=== PATIENT | female | born 1945 | race Caucasian/White ===

== ENCOUNTER → 2023-12-23 09:04 | Outpatient (REF) | payer OTHER, SELFPAY ==
[2023-12-23 11:15] LABS: % Basophils 1.7 % (0-2); % Eosinophils 1.5 % (0-6); % Immature Granulocytes 0.1 % (0-0.5); % Monocytes 7.2 % (1.7-9.3); % Neutrophils 56.5 % (42.2-75.2); Absolute Basophils 0.1 10^3/uL (0-0.2); Absolute Eosinophils 0.1 10^3/uL (0-0.7); Absolute Lymphocytes 2.5 10^3/uL (1.2-3.4); Absolute Monocytes 0.5 10^3/uL (0.1-0.6); Absolute Neutrophils 4.3 10^3/uL (1.4-6.5); Hematocrit 36.9 % (37.0-47.0); Mean Corp Hgb Conc. 32.5 g/dL (33.0-37.0); Mean Corpuscular Volume 98.4 fL (81.0-99.0); Mean Platelet Volume 10.4 fL (7.4-10.4); Nucleated Red Blood Cells % 0 %; Platelet Count 330 10^3/uL (130-400); Red Blood Cell Count 3.75 10^6/uL (4.20-5.40); Red Cell Dist. Width 12.3 % (11.5-14.5); White Blood Cell Count 7.6 10^3/uL (4.8-10.8)
[2023-12-23 11:28] LABS: ALT (SGPT) 12 U/L (0-35); AST (SGOT) 30 U/L (14-36); Albumin 4.3 g/dl (3.5-5.0); Alkaline Phosphatase 73 U/L (38-126); Blood Urea Nitrogen 29 mg/dl (7-17); Calcium 9.4 mg/dl (8.4-10.2); Chloride 102 mmol/L (98-107); Glucose 85 mg/dl (70-99); HDL Cholesterol 106 mg/dl; LDL Cholesterol, Calculated 62 mg/dl; Potassium 4.4 mmol/L (3.5-5.1); Sodium 138 mmol/L (135-145); Total Bilirubin 0.7 mg/dl (0.2-1.3); Total Cholesterol 184 mg/dl (50-199); Total Protein 7.4 g/dl (6.3-8.2); Triglyceride 80 mg/dl (10-149); Very Low Density Lipoprotein 16 mg/dl (0-30); eGFR 41.57
[2023-12-23 11:38] LABS: Carbon Dioxide 25 mmol/L (22-30)
[2023-12-23 11:45] LABS: Free T4 2.03 ng/dl (0.78-2.19)
[2023-12-23 11:54] LABS: Glycohemoglobin (HgbA1c) 5.2 % (4.0-5.6)
[2023-12-23 11:59] LABS: TSH 2.16 uIU/ml (0.47-4.68)
== END ==
LOC: HWLAB 09:04
PROVIDERS: ATTENDING PHYSICIAN Internal Medicine
DX: E78.1 Pure hyperglyceridemia (principal); R63.4 Abnormal weight loss; E03.9 Hypothyroidism, unspecified; D64.9 Anemia, unspecified; R06.89 Other abnormalities of breathing; Z87.891 Personal history of nicotine dependence
CPT/HCPCS: 36415; 71046; 80053; 80061; 83036; 84439; 84443; 84481; 85025

== ENCOUNTER → 2024-07-28 07:56 | Outpatient (REF) | payer OTHER, SELFPAY ==
[2024-07-28 09:38] LABS: % Basophils 1.9 % (0-2); % Eosinophils 1.4 % (0-6); % Immature Granulocytes 0.2 % (0-0.5); % Lymphocytes 27.5 % (20.5-51.1); % Monocytes 8.4 % (1.7-9.3); % Neutrophils 60.6 % (42.2-75.2); Absolute Basophils 0.1 10^3/uL (0-0.2); Absolute Eosinophils 0.1 10^3/uL (0-0.7); Absolute Lymphocytes 1.6 10^3/uL (1.2-3.4); Absolute Monocytes 0.5 10^3/uL (0.1-0.6); Absolute Neutrophils 3.5 10^3/uL (1.4-6.5); Hematocrit 36.2 % (37.0-47.0); Hemoglobin 11.6 g/dL (12.0-16.0); Mean Corpuscular Hgb 32.1 pg (27.0-31.0); Mean Corpuscular Volume 100.3 fL (81.0-99.0); Mean Platelet Volume 9.7 fL (7.4-10.4); Nucleated Red Blood Cells % 0 %; Platelet Count 287 10^3/uL (130-400); Red Blood Cell Count 3.61 10^6/uL (4.20-5.40); Red Cell Dist. Width 12.8 % (11.5-14.5); White Blood Cell Count 5.7 10^3/uL (4.8-10.8)
[2024-07-28 09:49] LABS: ALT (SGPT) 11 U/L (0-35); AST (SGOT) 27 U/L (14-36); Albumin 4.2 g/dl (3.5-5.0); Alkaline Phosphatase 57 U/L (38-126); Blood Urea Nitrogen 22 mg/dl (7-17); Calcium 9.5 mg/dl (8.4-10.2); Carbon Dioxide 25 mmol/L (22-30); Chloride 98 mmol/L (98-107); Glucose 89 mg/dl (70-99); HDL Cholesterol 102 mg/dl; LDL Cholesterol, Calculated 53 mg/dl; Potassium 4.4 mmol/L (3.5-5.1); Sodium 134 mmol/L (135-145); Total Bilirubin 0.8 mg/dl (0.2-1.3); Total Cholesterol 179 mg/dl (50-199); Total Protein 6.9 g/dl (6.3-8.2); Triglyceride 123 mg/dl (10-149); Very Low Density Lipoprotein 24 mg/dl (0-30); eGFR 45.76
[2024-07-28 10:08] LABS: Free T3 2.66 pg/ml (2.77-5.27); Free T4 2.14 ng/dl (0.78-2.19)
[2024-07-28 10:21] LABS: TSH 2.44 uIU/ml (0.47-4.68)
[2024-07-28 10:41] LABS: Vitamin B12 687 pg/ml (239-931)
[2024-07-28 11:06] LABS: Glycohemoglobin (HgbA1c) 5.1 % (4.0-5.6)
== END ==
LOC: HWLAB 07:56
PROVIDERS: ATTENDING PHYSICIAN Internal Medicine
DX: R63.4 Abnormal weight loss (principal); I10 Essential (primary) hypertension; E78.1 Pure hyperglyceridemia; E03.9 Hypothyroidism, unspecified; D64.9 Anemia, unspecified; E53.8 Deficiency of other specified B group vitamins
CPT/HCPCS: 36415; 80053; 80061; 82607; 83036; 84439; 84443; 84481; 85025

== ENCOUNTER → 2024-08-24 10:14 | Outpatient (REF) | payer OTHER, SELFPAY | LOC: HWRAD 10:14 | PROVIDERS: ATTENDING PHYSICIAN Internal Medicine | DX: R63.4 Abnormal weight loss (principal); Z87.891 Personal history of nicotine dependence | CPT/HCPCS: 71250 ==

== ENCOUNTER → 2025-02-08 11:11 | Outpatient (REF) | payer OTHER, SELFPAY ==
[2025-02-08 15:40] LABS: Hematocrit 23.2 % (37.0-47.0); Hemoglobin 7.5 g/dL (12.0-16.0); Mean Corp Hgb Conc. 32.3 g/dL (33.0-37.0); Mean Corpuscular Volume 97.9 fL (81.0-99.0); Nucleated Red Blood Cells % 0 %; Platelet Count 422 10^3/uL (130-400); Red Cell Dist. Width 13.4 % (11.5-14.5); Reticulocyte Count 4.6 % (0.4-2.8)
[2025-02-08 15:50] LABS: ALT (SGPT) < 10 U/L (0-35); AST (SGOT) 21 U/L (14-36); Albumin 3.7 g/dl (3.5-5.0); Alkaline Phosphatase 41 U/L (38-126); Blood Urea Nitrogen 65 mg/dl (7-17); Calcium 8.6 mg/dl (8.4-10.2); Carbon Dioxide 24 mmol/L (22-30); Chloride 105 mmol/L (98-107); Glucose 90 mg/dl (70-99); HDL Cholesterol 46 mg/dl; Iron 54 ug/dl (37-170); LDL Cholesterol, Calculated 58 mg/dl; Potassium 4.5 mmol/L (3.5-5.1); Sodium 133 mmol/L (135-145); Total Protein 6.1 g/dl (6.3-8.2); Very Low Density Lipoprotein 26 mg/dl (0-30); eGFR 26.20
[2025-02-08 15:59] LABS: Total Iron Binding Capacity 385 ug/dl (265-497)
[2025-02-08 16:23] LABS: Ferritin 182.0 ng/ml (11.1-264.0)
[2025-02-09 10:49] LABS: Glycohemoglobin (HgbA1c) 5.5 % (4.0-5.6)
== END ==
LOC: HWLAB 11:11
PROVIDERS: ATTENDING PHYSICIAN Internal Medicine
DX: D64.9 Anemia, unspecified (principal); E78.1 Pure hyperglyceridemia; R63.4 Abnormal weight loss; K21.9 Gastro-esophageal reflux disease without esophagitis
CPT/HCPCS: 36415; 80053; 80061; 82728; 83036; 83540; 83550; 85025; 85045

== ENCOUNTER 2025-02-12 01:23 | Inpatient (IN) | payer OTHER, SELFPAY ==
[2025-02-11 16:37] VITALS: BP 177/44
[2025-02-11 17:09] LABS: Hematocrit 23.6 % (37.0-47.0); Hemoglobin 7.7 g/dL (12.0-16.0); Mean Corp Hgb Conc. 32.6 g/dL (33.0-37.0); Mean Corpuscular Volume 97.5 fL (81.0-99.0); Nucleated Red Blood Cells % 0 %; Platelet Count 436 10^3/uL (130-400); Red Cell Dist. Width 14.1 % (11.5-14.5)
[2025-02-11 17:27] LABS: ALT (SGPT) < 10 U/L (0-35); AST (SGOT) 20 U/L (14-36); Albumin 3.9 g/dl (3.5-5.0); Alkaline Phosphatase 54 U/L (38-126); Blood Urea Nitrogen 73 mg/dl (7-17); Calcium 9.2 mg/dl (8.4-10.2); Glucose 84 mg/dl (70-99); Lipase 376 U/L (23-300); Total Protein 6.7 g/dl (6.3-8.2); eGFR 26.20
[2025-02-11 17:36] LABS: Troponin I < 0.012 ng/ml
[2025-02-11 17:38] LABS: Carbon Dioxide 24 mmol/L (22-30); Chloride 107 mmol/L (98-107); Potassium 6.0 mmol/L (3.5-5.1); Sodium 136 mmol/L (135-145)
[2025-02-11 19:50] VITALS: BMI 20.5
[2025-02-11 19:51] VITALS: BP 190/41
[2025-02-11 20:00] VITALS: BP 179/41
--- NOTE | 2025-02-11 20:15 | ED.GENMED ---
History of Present Illness
General
Chief Complaint: Abnormal Lab Value
Source: patient and family (Daughter)
Time Seen by Provider: 02/11/25 19:58
History of Present Illness
History of Present Illness:
79-year-old female sent to the emergency room at the recommendation of her primary care provider for evaluation of epigastric pain and lab abnormalities. The patient has been experiencing epigastric pain for the past couple weeks. She also has had
increase in her cough. The epigastric pain seems to come and go without any clear association to eating or activity. No nausea vomiting diarrhea or constipation. She denies any black or bloody stool. She has taken Tums without relief. Her
primary care doctor prescribed a proton pump inhibitor which she has been taking for couple days and has not seemed to help. She is having the pain now. Her primary care provider ordered some labs and she was found to have a hemoglobin of 7.5 and
renal function which is elevated above her baseline. Patient has been able to perform her activities of daily living without significant shortness of breath or fatigue. Patient is a former smoker having quit about 6 months ago. She smoked about a
half a pack a day for 60 years.
Past History
Past History
ED Past Medical History: Hypercholesterolemia
Social History
Tobacco: Former smoker
Personal:
Phy Exam
Physical Exam
Physical Exam:
General: Awake, Alert, Oriented X3. Appears stated age, somewhat thin
Vitals: Mildly hypertensive
Head: Atraumatic
Eyes: Pupils equal, EOMI
Throat: Airway intact, no exudates
Neck: Trachea midline
Lungs: Clear and equal b/l
Heart: Regular rate, no murmurs
Abd: Soft, moderate tenderness palpation epigastrium, No pulsatile mass
Rectal: Brown stool heme-negative
Neuro: Nonfocal
Skin: Warm, dry, no rash
Extremities: pulses equal b/l, no edema
Course
Orders/Labs/Results
Orders:
Orders
02/11/25 16:43
EKG [Electrocardiogram (*1)] Urgent
Reason for Study: Abdominal Pain
02/11/25 16:44
EKG- Treatment ONCE
02/11/25 17:02
Complete Blood Count/With Diff Urgent
Comprehensive Metabolic Panel Urgent
Lipase Urgent
Troponin I Urgent
02/11/25 20:12
0.9% Sodium Chloride 500 ml [Nss] 500 ml IV BOLUS
Iohexol [Omnipaque] See Protocol PO NOW STA
02/11/25 20:13
CT Abd/pel (oral only)-DH Only Urgent
Comment:
Reason For Exam: epigastric pain, anemia, arf
02/11/25 20:14
Pantoprazole [Protonix IV] 80 mg IV NOW STA
02/12/25 01:06
Admit/Transfer Patient As Directed
Co-Sign Provider:
Level of Care: Inpatient admission
Assign to:: Telemetry
Physician / Group: Jesus
Diagnosis: abdominal pain
Reason for Telemetry: Other
Other Reason for Telemetry: GI bleed
Date to Stop Telemetry: 02/14/25
Time to Stop Telemetry: 11:00
Reason for Hospitalization: gastritis
Expected length of stay greater than two midnights?: Yes
ELOS- Estimated Length of Stay in days: 2
I certify the patient meets the requirements for IP care: Yes
PRN Pain Medication Management As Directed
May give lesser potent ordered pain med per pt: Yes
preference::
Protocol:: Medication orders for pain may be administered in a
manner that supports deferring to patient preference
when the pt is:
- Requesting an ordered lesser potent pain medication.
Least to most potent pain medications are defined
as: acetaminophen < NSAID < tramadol < opioids
(morphine, oxycodone, hydromorphone).
- Requesting a lesser dose of the same medication IF
ORDERED.
- Requesting a less intrusive route of administration
if both routes are prescribed by the provider (PO <
IV).
02/12/25 01:07
Code Status As Directed
Resuscitation Status: Full Code
02/12/25 01:12
0.9% Sodium Chloride 250 ml [Nss] 250 ml IV BOLUS
Sodium Zirconium Cyclosilicate [Lokelma] 10 gram PO NOW STA
02/12/25 01:19
Code Status As Directed
Resuscitation Status: Do not resuscitate
Reached after discussion with pt or family/Healthcare POA: Yes
02/12/25 02:57
0.9% Sodium Chloride 1000 ml [Nss] 1,000 ml IV 100 mls/hr
Prochlorperazine [Compazine] 10 mg IV Q6HPRN PRN
02/12/25 02:57
Consult Notification Routine
Specialty to Notify: Gastroenterology
GASTROINTESTINAL CONSULT Routine
Consulting Provider: Mike Mathew
Was physician already notified: No
Reason for consult: acute gastritis, ?subacute gi bleed
Activity As Directed
Activity Level: With Assistance
INT (Intravenous Needle Therapy) As Directed
Comment: Place 2 IV catheters of the largest bore possible until stable
Orthostatic Vital Signs As Directed
Orthostatic VS Frequency: Now
Comment: then every four hours for twenty-four hours
Pneumatic Compression Sleeves As Directed
Type: Knee high
Vital Signs As Directed
Frequency: Per unit guidelines
DX Deep Vein Thrombosis Video Routine
02/12/25 06:00
Type+Screen IN AM
Clear Liquid
Basic Metabolic Panel IN AM
Complete Blood Count/No Diff IN AM
Prothrombin Time IN AM
Levothyroxine [Synthroid] 112 mcg PO DAILY @ 0600
02/12/25 08:00
Amlodipine [Norvasc] 5 mg PO DAILY
Escitalopram Oxalate [Lexapro] 20 mg PO DAILY
Pantoprazole [Protonix IV] 40 mg IV BID
02/12/25 14:00
H&H Q8H
02/12/25 22:00
Trazodone [Desyrel] 50 mg PO HS
02/14/25 11:00
DC Protocol for Telemetry ONCE
Abnormal Lab Results
02/11/25
17:02
RBC 2.42 L 10^6/uL
(4.20-5.40)
Hgb 7.7 L g/dL
(12.0-16.0)
Hct 23.6 L %
(37.0-47.0)
MCH 31.8 H pg
(27.0-31.0)
MCHC 32.6 L g/dL
(33.0-37.0)
Plt Count 436 H 10^3/uL
(130-400)
Absolute Monos (auto) 0.7 H 10^3/uL
(0.1-0.6)
Monocytes % 9.6 H %
(1.7-9.3)
Potassium 6.0 H mmol/L
(3.5-5.1)
BUN 73 H mg/dl
(7-17)
Creatinine 1.9 H mg/dL
(0.6-1.0)
Lipase 376 H U/L
(23-300)
02/11/25 17:02
02/11/25 17:02
Vital Signs
Initial and Last Documented VS:
Initial Vital Signs
Temp Pulse Resp BP Pulse Ox
97.4 F 66 18 177/44 100
02/11/25 16:37 02/11/25 16:37 02/11/25 16:37 02/11/25 16:37 02/11/25 16:37
Last Documented Vital Signs
Temp Pulse Resp BP Pulse Ox
97.4 F 63 15 171/44 97
02/11/25 16:37 02/12/25 02:30 02/12/25 02:30 02/12/25 02:00 02/12/25 02:30
MDM/Problems Addressed
Differential Diagnosis Includes:
Gastritis, peptic ulcer disease, duodenal ulcer, mass, cholecystitis
MDM/Problems Addressed:
Patient presents with epigastric abdominal pain, drop in hemoglobin. BUN also elevated. Constellation of symptoms could suggest an upper GI bleed. Also concerned that she might have some pancreatic cancer or some other mass lesion causing her
significant epigastric pain. CT obtained. No mass noted. Gallstones noted without evidence of cholecystitis. CT does show evidence of gastritis and duodenitis. Will treat the patient with IV Protonix. Hospitalize for trending of labs.
*Radiology
Radiology exam reviewed: radiology read reviewed
*Pulse Oximetry
SaO2: 100
Oxygen Mode of Delivery: Room air
Patient hypoxic: no
*EKG
Interpreted by ED Provider?: Yes
Interpretation: abnormal
Comparison EKG: changes noted (First-degree block now present)
Heart Rate: 68
Rate: normal
Rhythm: sinus
[place]: normal axis
Interval: first degree heart block
QRS Pattern: normal QRS
Ischemia: non-specific ST changes
*Hard Tile Setter Interpretation
Rate: normal
Interpretation: normal
Rhythm: sinus
*Critical Care Note
Total Time (30-74mins, 75-104mins- exclusive of procedures): Not Applicable
ED Attending Note
-
Portions of this chart may have been created with voice recognition software.� Occasional wrong word or��sound alike� substitutions may have occurred due to the inherent limitations of voice recognition software.
Discharge Plan
Departure
Patient Disposition: Admit
Date of Disposition: 02/11/25
Time of Disposition: 23:48
Admit to: Med/Surg
Presentation/result/management discussed w/ accepting MD/DO: Hospitalist
Condition: Fair
Discharge Problem:
Acute upper GI bleed, Gastritis
Interventions
Interventions:
*Risk Screen - Suicide Last Done: 02/11/25 16:37
*General Assessment Last Done: 02/11/25 16:37
*Neglect/Abuse Screening Last Done: 02/11/25 21:12
*ED- Fall Risk Assessment Last Done: 02/11/25 19:51
*ED COVID-19 Vaccine History Last Done: 02/11/25 16:37
*Nursing Disposition Last Done: 02/12/25 02:52
Discharge Date and Time
Discharge Date/Time: 02/12/25 02:52
[2025-02-11] MEDS: OMNIPAQUE 50 ML PO (20:37)
[2025-02-11] MEDS: PROTONIX IV 80 MG IV (20:40)
[2025-02-11] MEDS: NSS 500 IV (20:40)
[2025-02-11 21:00] VITALS: BP 173/43
[2025-02-11 22:00] VITALS: BP 167/43
[2025-02-12] VITALS (10 sets, daily range): BP systolic 131–189; BP diastolic 38–66; PULSE 66–83; BMI 19.8
--- NOTE | 2025-02-12 00:57 | HPS.HSE ---
Family Physician
-
Family Physician: Vane Tate
Chief Complaint
-
Low hemoglobin
History of Present Illness
This is a 79-year-old female with past medical history significant for hypothyroidism, hypertension, hyperlipidemia, presenting to the emergency department on recommendation of PMD for evaluation of epigastric discomfort and abnormal labs.
She reports ongoing experience of epigastric discomfort for at least 2 weeks. She reports intermittent episodes without any clear associated symptoms or activity. She denies exacerbation with eating. She denies any nausea or vomiting. She denies
constipation. She denies having any diarrhea. He has denies seeing any melena or hematochezia. She denies feeling dizzy or lightheaded. She denies dyspnea on exertion or shortness of breath or fatigue. She has not had any episodes of syncope.
Patient is a former smoker quitting about 6 months ago. She took Tums without relief. Denies NSAID use. Denies EtOH. She was started on PPI by PMD and is taking for about 2 days now without much help. Unfortunately PMD some labs recently and
found to have a hemoglobin of 7.5 with elevated creatinine above baseline.
In the emergency department hemoglobin 7.7 with normal platelet counts. Potassium was elevated at 6.0, BUN of 73 and a creatinine of 1.9. LFTs were normal and lipase was elevated at 376. CT of the abdomen pelvis without IV contrast was
consistent with emphysema, atelectasis as well as thickening around the stomach and the wall of the duodenum which is suggestive of gastritis and duodenitis. There is cholelithiasis without acute cholecystitis or choledocholithiasis. ECG is
nonischemic and sinus with 4 degree AV block at 68.
Medical History
Past Medical History
Past Medical History: Reports HTN, Hypercholesterolemia and Hypothyroidism
Past Surgical History: Reports Other
Social History
Tobacco: Former Smoker
Alcohol: None
Drug: None
Family History
Family History: Not pertinent
Allergies / Home Medications
Allergies reflects when Allergies were last updated in [employer].
Home Medications with original date entered in [employer]
Allergy/Medication List:
Allergies
Allergy/AdvReac Type Severity Reaction Status Date / Time
No Known Allergies Allergy Verified 02/11/25 16:42
Home Medications
Irbesartan 300 MG TAKE 1 TABLET EVERY DAY for 90 Active
Other [employer] Active
Levothyroxine Sodium 112 MCG TAKE 1 TABLET EVERY MORNING ON AN EMPTY STOMACH for 90 Active
Pantoprazole Sodium 40 MG TAKE 1 TABLET EVERY DAY for 90 days Jan, Active
Advil prn Active
Vitamin B12 500 mg Active
traZODone HCl 50 MG 1-2 tablets at bedtime as needed Orally Once a day for 30 days Active
amLODIPine Besylate 5 MG 1 tablet Orally Once a day for 90 days Active
Megestrol Acetate 625 MG/5ML 5 mL Orally Once a day for 30 days Jan, Feb, Active
Fenofibrate 160 MG 1 tablet Orally Once a day for 90 days Oct, Active
Escitalopram Oxalate 20 MG 1 tablet Orally Once a day for 90 days Jan, Active
Pantoprazole Sodium 40 MG 1 tablet 1/2 to 1 hour before morning meal Orally Once a day for 30 days Jan, Active
Review of Systems
-
Constitutional: Reports No Symptoms
EENT: Reports No Symptoms
Respiratory: Reports No Symptoms
Cardiac: Reports No Symptoms
Abdomen/GI: Reports Abdominal Pain
: Reports No Symptoms
Musculoskeletal: Reports No Symptoms
Skin: Reports No Symptoms
Neurological: Reports No Symptoms
Endocrine: Reports No Symptoms
Hematologic/Lymphatic: Reports No Symptoms
Psych: Reports No Symptoms
Physical Exam
Vital Signs
Vital Signs
Temp Pulse Resp BP Pulse Ox
97.4 F 62 16 167/43 98
02/11/25 16:37 02/12/25 00:30 02/12/25 00:30 02/11/25 22:00 02/12/25 00:30
Physical Exam
General: Well Developed, Well Nourished and No Apparent Distress
HEENT: NormoCephalic, Moist mucous membranes and Atraumatic
Respiratory: Clear
Cardiac: S1/S2 and Regular Rhythm; No Murmur or Rub
GI: Soft, Non Tender, Non Distended and Normal Bowel Sounds; No Organomegaly
Rectal: Deferred by Provider
Musculoskeletal: No Clubbing, No Cyanosis and No Edema
Skin: No Rash
Neuro: Nonfocal/grossly intact
Laboratory Results
-
02/11/25 17:02
02/11/25 17:02
Laboratory Results
Total Bilirubin 0.3 mg/dl (0.2-1.3) 02/11/25 17:02
AST 20 U/L (14-36) 02/11/25 17:02
ALT < 10 U/L (0-35) 02/11/25 17:02
Alkaline Phosphatase 54 U/L (38-126) 02/11/25 17:02
Troponin I < 0.012 ng/ml 02/11/25 17:02
Lipase 376 U/L (23-300) H 02/11/25 17:02
Data Reviewed
-
CT Scan: Report Reviewed by me
Medical Tests (Nuc Med, Echo, EKG etc): Image Personally Visualized and interpreted
Lab Data: Labs Reviewed by me
Old Records: Reviewed
Impression/Plan
-
IMPRESSION:
79-year-old female coming in with epigastric abdominal discomfort and low hemoglobin concerning for subacute upper GI bleed. No history of melena or hematochezia. Negative findings of bleeding in the emergency department. She however has a
markedly elevated BUN as well as some LEYDI with a potassium of 6.0 raising suspicion for some degree of ongoing upper GI bleed.
PLAN:
Abdominal pain -suspect acute duodenitis/gastritis with associated pancreatitis. GI bleed suspected from marked elevation in BUN relative to Cr.
- admit to telemetry for possible GI bleed
- IV ppi bid for now
- clear liquid diet, plan for possible scope
- test occult blood in stools
- orthostatic vital signs
- type and screen, trend H/H, transfuse if Hgb < 7
- GI consultation
LEYDI - Suspect pre-renal azotemia given abdominal symptoms.
- hold irbesartan
- iv fluids for now
- avoid nsaids and nephrotoxins
Hyperkalemia - LEYDI, ARB use
- hold irbesartan
- iv fluids
- lokelma 10 x 1 and reassess
HTN
- orthostatics
- continue amlodipine
DVT PPX - SCD
Code status - DNR
[2025-02-12] MEDS: NSS 250 IV (01:49)
[2025-02-12] MEDS: LOKELMA 10 GRAM PO (01:53)
[2025-02-12] MEDS: NSS 1000 IV ×2 (03:23→15:09)
--- NOTE | 2025-02-12 04:15 | PTCARENOTE ---
Receive pt from ER. Pt alert oriented X3, calm in no distress. Pt assist X1 steady. Pt has no complaint of pain, states that she has tenderness in the epigastric area. Pt denies nausea, lightheaded, dizziness, sob, or melena. UZ=365/51, HR=66,
RR=16, SpO2=96% on RA. Pt on NSR on telemonitor. Pt oriented to the room, call dukes within reach. IVFs infusing as per order. Will continue to monitor the pt.
[2025-02-12] MEDS: SYNTHROID 112 MCG PO (05:58)
[2025-02-12 07:54] LABS: INR 1.05; PT 14.0 Sec (11.4-14.6)
[2025-02-12 07:56] LABS: Hematocrit 24.4 % (37.0-47.0); Hemoglobin 8.0 g/dL (12.0-16.0); Mean Corp Hgb Conc. 32.8 g/dL (33.0-37.0); Mean Corpuscular Volume 95.7 fL (81.0-99.0); Platelet Count 413 10^3/uL (130-400); Red Cell Dist. Width 14.2 % (11.5-14.5)
[2025-02-12 08:17] LABS: Blood Urea Nitrogen 49 mg/dl (7-17); Calcium 8.3 mg/dl (8.4-10.2); Carbon Dioxide 21 mmol/L (22-30); Chloride 111 mmol/L (98-107); Estimated Creatinine Clearance 27 ml/min; Glucose 79 mg/dl (70-99); Potassium 4.8 mmol/L (3.5-5.1); Sodium 137 mmol/L (135-145); eGFR 41.31
[2025-02-12] MEDS: PROTONIX IV 40 MG IV ×2 (08:20→19:54)
[2025-02-12] MEDS: NSS (PRESERVATIVE FREE) 10 ML IV ×2 (08:20→19:54)
[2025-02-12] MEDS: NORVASC 5 MG PO ×2 (08:20→19:54)
[2025-02-12] MEDS: LEXAPRO 20 MG PO (08:20)
[2025-02-12 11:34] LABS: Iron 57 ug/dl (37-170)
[2025-02-12 11:43] LABS: Total Iron Binding Capacity 357 ug/dl (265-497)
--- NOTE | 2025-02-12 11:44 | CM ---
CM reviewed chart, patient seen bedside, initial assessment completed. 79-year-old female sent to the emergency room at the recommendation of her primary care provider for evaluation of epigastric pain and lab abnormalities. Patient resides
independently in a mobile home, four steps to enter. Patient denies use of DME, reports VN in past after knee surgery (16 yrs ago), denies SNF. Patient confirms PCP Vane Tate, Pharmacy [facility], confirms prescription coverage.
Patient denies insecurities at home. CM will continue to follow for all discharge planning needs.
Plan; return home when stable
[2025-02-12 12:09] LABS: Ferritin 180.0 ng/ml (11.1-264.0)
--- NOTE | 2025-02-12 12:18 | CON.GI ---
Consultation
-
Date/Time Consultation Requested: 02/12/2025, 3am
Date/Time Consultation Performed: 02/12/2025, 12:20pm
Requesting Provider: Dr. Lee
Performing Provider: Dr. Mathew
Reason for Consultation: anemia, epigastric pain
Medical History
Chief Complaint / HPI
Chief Complaint: outpatient labs drop in Hb
History of Present Illness:
79 yo F pmh as below p/w epigastric pain and new onset anemia. Pt with epigastric pain x2 weeks.
In addition to the epigastric pain, she has been having some belching and fullness. C/o fatigue.Denies any NSAIDs. She has lost 13 pounds in the last 3 weeks and has lost significant weight since last year, about 50 pounds. She did lose her
last year and that was thought to be the cause of the weight loss. She denies any NSAIDs or blood thinners. Denies dysphagia, change in bowel habits, constipation, diarrhea. Stools are brown. States she had a colonoscopy many years ago
but [facility]. Never had endoscopy. No family history of GI malignancy.
Went to PCP found to have Hb 7.7, K 6, Cr 1.9. Repeat K here 4.8, Cr 1.3 (BUN today 49). CT in ER 02/11 with thickening of stomach and smallb weol.
Past Medical History
Past Medical History: HTN, Hypercholesterolemia and Hypothyroidism
Past Surgical History: Appendectomy, Gynecological (hysterectomy) and Orthopedic (knee)
Social History
Tobacco: Former Smoker
Alcohol: None
Drug: None
Family History
Family History: Reviewed & Not Pertinent
Allergies / Home Medications
Allergy/AdvReac Type Severity Reaction Status Date / Time
No Known Allergies Allergy Verified 02/11/25 16:42
�Medication �Instructions �Recorded
amlodipine 5 mg tablet 5 mg PO DAILY 02/12/25
cyanocobalamin (vitamin B-12) 500 500 mcg PO DAILY 02/12/25
mcg tablet (Vitamin B-12)
escitalopram oxalate 10 mg tablet 10 mg PO DAILY 02/12/25
fenofibrate 120 mg tablet 120 mg PO DAILY 02/12/25
irbesartan 300 mg tablet 300 mg PO DAILY 02/12/25
levothyroxine 112 mcg tablet 112 mcg PO DAILY 02/12/25
pantoprazole 40 mg tablet,delayed 40 mg PO DAILY 02/12/25
release (Protonix)
Review of Systems
-
All other systems: A 12 pt ROS was Negative except as stated above in HPI
Vital Signs
Temp Pulse Resp BP Pulse Ox
97.4 F 67 16 168/66 97
02/12/25 11:49 02/12/25 11:49 02/12/25 11:49 02/12/25 11:49 02/12/25 11:49
Physical Exam
Exam
General: Well Developed
HEENT: Normocephalic
Respiratory: Clear
Cardiac: S1/S2
GI: Non Tender and Non Distended
Musculoskeletal: No Clubbing
Skin: Warm
Neuro: AO x 3
Psych: Calm
Results
WBC 5.4 10^3/uL (4.8-10.8) 02/12/25 07:15
Hgb 8.0 g/dL (12.0-16.0) L 02/12/25 07:15
Hct 24.4 % (37.0-47.0) L 02/12/25 07:15
MCV 95.7 fL (81.0-99.0) 02/12/25 07:15
Plt Count 413 10^3/uL (130-400) H 02/12/25 07:15
Absolute Neuts (auto) 3.5 10^3/uL (1.4-6.5) 02/11/25 17:02
PT 14.0 Sec (11.4-14.6) 02/12/25 07:15
INR 1.05 02/12/25 07:15
Sodium 137 mmol/L (135-145) 02/12/25 07:15
Potassium 4.8 mmol/L (3.5-5.1) 02/12/25 07:15
Chloride 111 mmol/L (98-107) H 02/12/25 07:15
Carbon Dioxide 21 mmol/L (22-30) L 02/12/25 07:15
BUN 49 mg/dl (7-17) H 02/12/25 07:15
Creatinine 1.3 mg/dL (0.6-1.0) H 02/12/25 07:15
Calcium 8.3 mg/dl (8.4-10.2) L 02/12/25 07:15
Total Bilirubin 0.3 mg/dl (0.2-1.3) 02/11/25 17:02
AST 20 U/L (14-36) 02/11/25 17:02
ALT < 10 U/L (0-35) 02/11/25 17:02
Alkaline Phosphatase 54 U/L (38-126) 02/11/25 17:02
Lipase 376 U/L (23-300) H 02/11/25 17:02
Diagnostic Image Results:
Prior GI Procedures:
EGD:
Colonoscopy:
Assessment / Plan
-
79 yo F here with epigastric pain, weight loss, anemia (mixed FREDDIE/ACD ferritin 180, low TS) however significant drop since Jul (was 11.6), CT with gastric/duodenal wall thickening c/w likely UGIB suspect PUD although no NSAIDs. With weight loss
malignancy in differential. Could also be gastritis/duodenitis, AVM.
Plan for EGD timing pending clinical status d/w patient and family at bedside. R/a/b reviewed with pt and family including risks of bleeding, infection, perforation, anesthesia risk. Discussed if active bleeding will treat.
Trend Hb.
Ok low residue diet, NPO after midnight pending clinical status.
Will order IV Fe to help with fatigue/anemia.
Continue protonix 40 IV BID.
Further recommendations pending EGD.
-
-
Thank you for consultation and allowing me to participate in the patient's care. Please call the regional environmental manager GI physician during the after hours with any questions or concerns.
[2025-02-12 12:40] LABS: Folate 10.4 ng/ml (2.76-20); Vitamin B12 > 1000 pg/ml (239-931)
--- NOTE | 2025-02-12 12:55 | W.PN.HOSP.TC ---
Addendum entered and electronically signed by Dorie Gilliland MD 02/12/25 16:26:
I saw and evaluated the patient independently. I reviewed the resident�s note and agree with findings and plan as documented by Dr. Garcia.
GENERAL: well developed, well nourished, female in no apparent distress
HEENT: NC/AT--no O2 requirements
HEART: regular rate and rhythm, +S1, +S2
LUNGS : clear to auscultation bilaterally
ABDOM: soft, mild tenderness in midepigastrium, nondistended, + bowel sounds
EXT: no cyanosis, clubbing, or edema
NEUROLOGIC: grossly intact
Acute blood loss on chronic anemia likely secondary to upper GI bleed--PUD, gastritis, duodenitis, duodenal ulcer--malignancy also a concern--apprec GI--will need scopes--IV iron started--PPI--antiemetics
Hyperkalemia--likely due to LEYDI--improved s/p Lokelma
LEYDI suspect prerenal acidemia secondary to combination of dehydration and excessive blood loss-- Creatinine 1.9-- Hold outpatient ARB's and avoid nephrotoxic agents-- Continue fluids
Essential Hypertension--Outpatient ARB held in setting of LEYDI and hyperkalemia--Increase amlodipine 5 to twice daily
Hypothyroidism--Continue levothyroxine
Depression/anxiety-- Continue escitalopram
Insomnia--Continue home trazodone
code status--DNR
DVT proph -- SCDs
Original Note:
Today's Communication/Plan
-
NPO after midnight for Endoscopy tmrw with GI
IVF
Monitor hg
PPI
Assessment / Plan
Assessment / Plan
79-year-old female with past medical history of hypothyroidism, hypertension, depression presented to [facility] due to abnormal labs per PCPs recommendation. Patient had a hemoglobin of 7.7, potassium 6.0, creatinine 1.9, bun 73 and
ongoing nausea and abdominal discomfort concerning for upper GI bleed.
Acute on chronic blood loss anemia secondary to upper GI bleed
-- Ongoing abdominal discomfort with hemoglobin 7.7, BUN 73, potassium 6.0
-- With history of weight loss, concerning for malignancy however patient's also recently 7 months ago and she has not had the same appetite since.
-- GI appreciated
-- Trend hemoglobin
-- PPI twice daily
-- IV iron per GI
-- Okay for low residue diet per GI with n.p.o. after midnight
-- Likely scope in the a.m.
-- Prochlorperazine as needed for nausea
Hyperkalemia
--6.0 in ED, status post Lokelma now resolved
-- Monitor K
LEYDI suspect prerenal acidemia secondary to combination of dehydration and excessive blood loss
-- Creatinine 1.9
-- Hold outpatient ARB's and avoid nephrotoxic agents
-- Continue fluids
Hypertension
--Outpatient ARB held in setting of LEYDI and hyperkalemia
--Increase amlodipine 5 to twice daily
Hypothyroidism
--Continue levothyroxine
Depression/anxiety
-- Continue escitalopram
Insomnia
--Continue home trazodone
DNR
SCDs
Anticipated Discharge: 24 - 48 hours
Subjective/Interval History
-
Date of Service: February 12, 2025
Some abdominal discomfort and fatigue. Otherwise no complaints.
Objective Data
-
Labs:
Laboratory Results
02/12/25 02/12/25
07:15 14:00
WBC 5.4
Hgb 8.0 L Pending
Hct 24.4 L Pending
Plt Count 413 H
PT 14.0
INR 1.05
Sodium 137
Potassium 4.8
Chloride 111 H
Carbon Dioxide 21 L
BUN 49 H
Creatinine 1.3 H
Glucose 79
Calcium 8.3 L
Vital Signs:
Vital Signs
Temp Pulse Resp BP Pulse Ox
97.4 F 67 16 168/66 97
02/12/25 11:49 02/12/25 11:49 02/12/25 11:49 02/12/25 11:49 02/12/25 11:49
I&O
02/11/25 02/12/25 02/13/25
06:59 06:59 06:59
Intake Total 300 / 300
Balance 300 / 300
Review of Systems
-
History Source: Patient
Constitutional: Reports No Symptoms
Respiratory: Reports No Symptoms
Cardiac: Reports No Symptoms
Abdomen/GI: Reports Abdominal Pain and Nausea
Genitourinary: Reports No Symptoms
Neuro: Reports No Symptoms
Physical Exam
-
General: No Apparent Distress and Comfortable
HEENT: Normocephalic
Respiratory: Clear to Auscultation
Cardiac: Regular Rhythm and S1/S2
GI: Soft, Nondistended, Normal Bowel Sounds and Tender (Midepigastric region)
Musculoskeletal: No Cyanosis and No Edema
Skin: Warm and Dry
Neuro: AO x 3
Psych: Calm
[2025-02-12] MEDS: FERRLECIT 110 MG IV (13:23)
[2025-02-12 14:35] LABS: Hematocrit 24.4 % (37.0-47.0); Hemoglobin 8.1 g/dL (12.0-16.0)
[2025-02-12] MEDS: DESYREL 50 MG PO (22:08)
[2025-02-12 23:49] LABS: Hematocrit 20.4 % (37.0-47.0); Hemoglobin 6.7 g/dL (12.0-16.0)
[2025-02-13] MEDS: NSS 1000 IV ×2 (00:10→10:12)
[2025-02-13 01:35] LABS: Hematocrit 22.0 % (37.0-47.0); Hemoglobin 7.2 g/dL (12.0-16.0)
--- NOTE | 2025-02-13 01:45 | PTCARENOTE ---
Pt's Hb at 2300=6.7. Pt denies any blood in stool or anywhere else. Pt denies any dizziness, headache, or syncope. VSS (BE=693/44, HR=76), Neg orthostatic VS. A repeat of Hb=7.2. No order for blood transfusion given unless pt's Hb<7, or became
hypotensive. Will continue to monitor the pt.
[2025-02-13 03:31] VITALS: BP 154/45; BP 166/43; BP 167/44; PULSE 71; PULSE 75; PULSE 78
[2025-02-13] MEDS: SYNTHROID 112 MCG PO (05:45)
[2025-02-13 07:00] VITALS: BP 168/51
[2025-02-13] MEDS: LEXAPRO 20 MG PO (08:50)
[2025-02-13] MEDS: NORVASC 5 MG PO ×2 (08:50→20:18)
[2025-02-13] MEDS: PROTONIX IV 40 MG IV ×2 (08:50→20:18)
[2025-02-13] MEDS: NSS (PRESERVATIVE FREE) 10 ML IV ×2 (08:50→20:18)
--- NOTE | 2025-02-13 08:50 | W.PN.HOSP.TC ---
Addendum entered and electronically signed by Corrine Garcia MD, Resident 02/13/25 15:54:
Amlodipine 5mg BID today and re-assess tmrw with PRN hydralazine
Addendum entered and electronically signed by Corrine Garcia MD, Resident 02/13/25 15:44:
Increase amlodipine to 10mg BID for elevated BP
Addendum entered and electronically signed by Dorie Gilliland MD 02/13/25 15:42:
I saw and evaluated the patient independently. I reviewed the resident�s note and agree with findings and plan as documented by Dr. Garcia.
GENERAL: well developed, well nourished, female in no apparent distress
HEENT: NC/AT--no O2 requirements
HEART: regular rate and rhythm, +S1, +S2
LUNGS : clear to auscultation bilaterally
ABDOM: soft, mild tenderness in midepigastrium, nondistended, + bowel sounds
EXT: no cyanosis, clubbing, or edema
NEUROLOGIC: grossly intact
Acute blood loss on chronic anemia likely secondary to upper GI bleed--PUD, gastritis, duodenitis, duodenal ulcer all possibilities--malignancy also a concern--apprec GI--EGD today--IV iron started by GI--PPI--antiemetics
Hyperkalemia--likely due to LEYDI--improved s/p Lokelma
LEYDI suspect prerenal acidemia secondary to combination of dehydration and excessive blood loss-- Creatinine 1.9 on admission, down to 1.1-- Hold outpatient ARB's and avoid nephrotoxic agents-- Continue fluids
Essential Hypertension--Outpatient ARB held in setting of LEYDI and hyperkalemia--Increase amlodipine 5 to twice daily
Hypothyroidism--Continue levothyroxine
Depression/anxiety-- Continue escitalopram
Insomnia--Continue home trazodone
code status--DNR
DVT proph -- SCDs
Original Note:
Today's Communication/Plan
-
Endoscopy
Monitor hemoglobin
Assessment / Plan
Assessment / Plan
79-year-old female with past medical history of hypothyroidism, hypertension, depression presented to [facility] due to abnormal labs per PCPs recommendation. Patient had a hemoglobin of 7.7, potassium 6.0, creatinine 1.9, bun 73 and
ongoing nausea and abdominal discomfort concerning for upper GI bleed.
Acute on chronic blood loss anemia secondary to upper GI bleed
-- Ongoing abdominal discomfort with hemoglobin 7.7, BUN 73, potassium 6.0
-- With history of weight loss, concerning for malignancy however patient's also recently 7 months ago and she has not had the same appetite since.
-- GI appreciated
-- Trend hemoglobin -hemoglobin 6.7 overnight however rechecked 7.2 and did not require transfusion-monitor
-- PPI twice daily
-- IV iron per GI
-- Okay for low residue diet per GI with n.p.o. after midnight
-- Plan for endoscopy today
-- Prochlorperazine as needed for nausea
Hyperkalemia
--6.0 in ED, status post Lokelma now resolved
-- Monitor K
LEYDI suspect prerenal acidemia secondary to combination of dehydration and excessive blood loss
-- Creatinine 1.9 >> 1.1
-- Hold outpatient ARB's and avoid nephrotoxic agents
-- Continue fluids
Hypertension
--Outpatient ARB held in setting of LEYDI and hyperkalemia
--Increase amlodipine 5 to twice daily
Hypothyroidism
--Continue levothyroxine
Depression/anxiety
-- Continue escitalopram
Insomnia
--Continue home trazodone
DNR
SCDs
Anticipated Discharge: 24 - 48 hours
Subjective/Interval History
-
Date of Service: February 13, 2025
No complaints overnight. Ongoing slight abdominal discomfort.
Objective Data
-
Labs:
Laboratory Results
02/12/25 02/13/25 02/13/25
23:22 01:08 06:00
WBC Pending
Hgb 6.7 L* 7.2 L Pending
Hct 20.4 L* 22.0 L Pending
Plt Count Pending
Sodium Pending
Potassium Pending
Chloride Pending
Carbon Dioxide Pending
BUN Pending
Creatinine Pending
Glucose Pending
Calcium Pending
Vital Signs:
Vital Signs
Temp Pulse Resp BP Pulse Ox
97.8 F 76 15 137/44 91
02/13/25 03:31 02/12/25 23:08 02/13/25 03:31 02/12/25 23:08 02/13/25 03:31
I&O
02/12/25 02/13/25 02/14/25
06:59 06:59 06:59
Intake Total 300 / 300 480 / 480
Balance 300 / 300 480 / 480
Review of Systems
-
History Source: Patient
Constitutional: Reports No Symptoms
Respiratory: Reports No Symptoms
Cardiac: Reports No Symptoms
Abdomen/GI: Reports Other (Describes the abdominal discomfort)
Neuro: Reports No Symptoms
Physical Exam
-
General: No Apparent Distress and Comfortable
HEENT: Normocephalic
Respiratory: Clear to Auscultation
Cardiac: Regular Rhythm and S1/S2
GI: Soft, Nondistended, Normal Bowel Sounds and Tender (Mid epigastric region)
Musculoskeletal: No Cyanosis and No Edema
Skin: Warm and Dry
Neuro: AO x 3
Psych: Calm
[2025-02-13 09:28] LABS: Hematocrit 23.2 % (37.0-47.0); Hemoglobin 7.7 g/dL (12.0-16.0); Mean Corp Hgb Conc. 33.2 g/dL (33.0-37.0); Mean Corpuscular Volume 98.3 fL (81.0-99.0); Platelet Count 414 10^3/uL (130-400); Red Cell Dist. Width 14.1 % (11.5-14.5)
[2025-02-13 09:42] LABS: Blood Urea Nitrogen 28 mg/dl (7-17); Calcium 8.2 mg/dl (8.4-10.2); Carbon Dioxide 22 mmol/L (22-30); Chloride 114 mmol/L (98-107); Estimated Creatinine Clearance 32 ml/min; Glucose 77 mg/dl (70-99); Potassium 4.4 mmol/L (3.5-5.1); Sodium 138 mmol/L (135-145); eGFR 50.48
[2025-02-13 11:00] VITALS: BP 169/44
[2025-02-13 11:06] VITALS: BMI 19.8
[2025-02-13] MEDS: FERRLECIT 110 MG IV (14:01)
[2025-02-13 16:20] VITALS: BP 156/52
[2025-02-13 17:55] LABS: Hematocrit 24.0 % (37.0-47.0); Hemoglobin 7.9 g/dL (12.0-16.0)
[2025-02-13 19:29] VITALS: BP 150/45
[2025-02-13] MEDS: DESYREL 50 MG PO (21:36)
[2025-02-13 23:55] VITALS: BP 130/47
[2025-02-14 03:05] VITALS: BP 130/47
[2025-02-14] MEDS: SYNTHROID 112 MCG PO (05:37)
[2025-02-14 08:07] VITALS: BP 153/42
[2025-02-14 08:31] LABS: Hematocrit 25.2 % (37.0-47.0); Hemoglobin 8.2 g/dL (12.0-16.0); Mean Corp Hgb Conc. 32.5 g/dL (33.0-37.0); Mean Corpuscular Volume 98.8 fL (81.0-99.0); Platelet Count 413 10^3/uL (130-400); Red Cell Dist. Width 14.2 % (11.5-14.5)
--- NOTE | 2025-02-14 08:42 | W.PN.GI.CBS2 ---
Today's Communication / Plan
-
ppi, dc planning, gi signing off
Assessment / Plan
-
79 yo F here with epigastric pain, weight loss, anemia (mixed FREDDIE/ACD ferritin 180, low TS) however significant drop since Jul (was 11.6), CT with gastric/duodenal wall thickening EGD yesterday with duodenal ulcer, gastritis likely cause of bleeding.
Hb today stable.
Recommendations:
- Protonix 40 BID x 8 weeks then daily
- F/up path
- Repeat EGD in 8 weeks reassess gastric erosion/gastritis pending path - should also be set up for a cscope as had not had done in many years
- Repeat Hb 1 week outpatient
- F/up GI office in 4 weeks I sent msg to my office
GI will sign off please call with ?s. HUA DC GI POV.
Subjective
Subjective
Date of Service: February 14, 2025
Pain improved, no bloody BM
Objective
Data Reviewed
Laboratory Data:
Laboratory Results
02/14/25 07:55
Laboratory Results
PT 14.0 Sec (11.4-14.6) 02/12/25 07:15
INR 1.05 02/12/25 07:15
Total Bilirubin 0.3 mg/dl (0.2-1.3) 02/11/25 17:02
AST 20 U/L (14-36) 02/11/25 17:02
ALT < 10 U/L (0-35) 02/11/25 17:02
Alkaline Phosphatase 54 U/L (38-126) 02/11/25 17:02
Lipase 376 U/L (23-300) H 02/11/25 17:02
Vital Signs and I&O:
Vital Signs
Temp Pulse Resp BP Pulse Ox
97.7 F 66 16 153/42 97
02/14/25 08:07 02/14/25 08:07 02/14/25 08:07 02/14/25 08:07 02/14/25 08:07
I&O
02/13/25 02/14/25 02/15/25
06:59 06:59 06:59
Intake Total 480 / 480 240 / 240
Balance 480 / 480 240 / 240
Physical Exam
Physical Exam
GI: Non Distended and Non Tender
[2025-02-14 09:03] LABS: Blood Urea Nitrogen 20 mg/dl (7-17); Calcium 8.8 mg/dl (8.4-10.2); Carbon Dioxide 21 mmol/L (22-30); Chloride 113 mmol/L (98-107); Estimated Creatinine Clearance 32 ml/min; Glucose 84 mg/dl (70-99); Potassium 4.1 mmol/L (3.5-5.1); Sodium 138 mmol/L (135-145); eGFR 50.48
[2025-02-14] MEDS: NORVASC 5 MG PO (09:09)
[2025-02-14] MEDS: PROTONIX IV 40 MG IV (09:09)
[2025-02-14] MEDS: LEXAPRO 20 MG PO (09:09)
[2025-02-14] MEDS: NSS (PRESERVATIVE FREE) 10 ML IV (09:10)
--- NOTE | 2025-02-14 11:07 | W.PN.UPDATE ---
Addendum entered and electronically signed by Jose Luna MD 02/15/25 09:35:
moderate protein calorie malnutrition of acute illness
Addendum entered and electronically signed by Jose Luna MD 02/14/25 12:51:
Total time spent on d/c = 32 min. This included today's physical exam, progress note, review of laboratory and diagnostic data, preparation of discharge documents and prescriptions, and discussions about the pt's hospital course and discharge plan
with the patient and other faculty i on call medical assistant involved in the patient's care.
Original Note:
Update Note
Progress Note Update
I saw and evaluated the patient. I reviewed the resident�s note and agree with findings and plan as documented in the resident�s note.
Denies melena hematochezia. No new complaints.
Gen: NAD, awake and alert, appears chronically ill
Eyes: EOMI, PERRLA, no scleral icterus.
Neck: supple.
CV: RRR, +S1/S2, no m/r/g.
Resp: CTAB, no rales, wheezes, or rhonchi.
Abd: +BS, soft, NT, ND
Skin: No rashes.
Neuro: CN 2-12 intact, non-focal.
Psych: Normal mood and affect.
CT A/P: Linear densities within both lower lungs, likely atelectasis, slightly increased from prior CT. Changes of emphysema within the lower lungs. Coronary artery calcifications are present. Please correlate with symptoms of and risk factors for
coronary artery disease, with further workup as clinically appropriate. The folds of the stomach appears thickened, especially in the upper stomach. There also appear to be thickening of the wall the duodenum from the first through third portions.
Findings would be suggestive of gastritis and duodenitis. There is no evidence for perforation or free intraperitoneal air. Cholelithiasis. No CT findings to suggest acute cholecystitis. No evidence for biliary ductal dilation. Moderate to severe
vascular calcification with no aortic aneurysm. Bony degenerative changes as described.
EGD: Normal esophagus. Small hiatal hernia. Mild Schatzki ring. Discolored mucosa in the esophagus. Biopsied. Gastric erosion with no stigmata of recent bleeding. Biopsied. Non-bleeding duodenal ulcer with a clean ulcer base (Sourav Class III).
Normal second portion of the duodenum.
Acute blood loss on chronic anemia likely due to upper GIB:
-s/p 2U pRBCs
-EGD above, follow Bx path
-diet advanced, Hb stable
-cont IV Fe
-cont PPI BID x 8 weeks
Other problems:
LEYDI and hyperkalemia, due to acute blood loss anemia, [employer] ARB stopped, resolved
Essential HTN: Norvasc increased to 5mg PO BID
Hypothyroidism: cont levothyroxine
Depression/anxiety: cont escitalopram
Insomnia: cont home trazodone
DNR/SCDs
Medically cleared for d/c.
[2025-02-14 11:46] VITALS: BP 151/45
--- NOTE | 2025-02-14 12:29 | W.PN.HOSP.TC ---
Today's Communication/Plan
-
- follow up gi in 8 weeks
- continue on protonix PO 40 mg bid
Assessment / Plan
Assessment / Plan
1. Acute on chronic blood loss anemia secondary to upper GI bleed
- IV iron converted to oral iron ferrous sulfate 325 po daily on discharge
- Continue on regular diet on dc
- Follow up appointment with GI on march 17, continue regular diet, continue protonix 40 mg PO bid for 8 weeks, and repeat endoscope in 8 weeks
- Prochlorperazine as needed for nausea
2. Hyperkalemia
-6.0 in ED, status post Lokelma now resolved
-Monitor K
3. Prerenal LEYDI secondary to combination of dehydration and excessive blood loss:
-Creatinine is 1.1 today and normalized
-Continue on amlodipine 5 mg bid for her HTN
- Fluids discontinued
4. Hypertension
-Increase amlodipine 5 to twice daily
- Blood pressure is 151/45, continue to monitor
5. Hypothyroidism
-Continue levothyroxine
6. Depression/anxiety
-Continue escitalopram at increased dose of 20 mg
7. Insomnia
-Continue home trazodone
DNR
SCDs
Anticipated Discharge: Today
Subjective/Interval History
-
Date of Service: February 14, 2025
79-year-old female with past medical history of hypercholesterolemia, Hospital course day 4, came to the emergency department at the recommendation of her primary care provider for evaluation of intermittent epigastric pain not related to eating or
activity. She also had lab abnormalities hemoglobin of 7.5 and creatinine level of 1.9, elevated BUN and potassium of 6.0. Admitted to telemetry , started on IV PPIs twice daily, started on clear liquid diet, typing and screen performed. CT
abdomen shows possible duodenitis and gastritis and GI was consulted, they did EGD and it showed normal esophagus, small hiatal hernia, mild Schatzki ring, discolored mucosa on esophagus which was biopsied, gastric erosion with no stigmata of recent
bleeding which was biopsied, nonbleeding duodenal ulcer Sourav class III and normal second portion of the duodenum. Recommendation is to resume regular diet, continue present Protonix IV twice daily, get pathology results in 2 weeks, and then
repeat endoscope in 8 weeks. Patient has a GI outpatient appointment scheduled for March 17
LEYDI resolved
Hyperkalemia status post Lokelma resolved
No acute overnight events. Patient has no acute medical complaints.
Objective Data
-
Labs:
Laboratory Results
02/14/25
07:55
WBC 5.8
Hgb 8.2 L
Hct 25.2 L
Plt Count 413 H
Sodium 138
Potassium 4.1
Chloride 113 H
Carbon Dioxide 21 L
BUN 20 H
Creatinine 1.1 H
Glucose 84
Calcium 8.8
Vital Signs:
Vital Signs
Temp Pulse Resp BP Pulse Ox
97.8 F 65 16 151/45 98
02/14/25 11:46 02/14/25 11:46 02/14/25 11:46 02/14/25 11:46 02/14/25 11:46
I&O
02/13/25 02/14/25 02/15/25
06:59 06:59 06:59
Intake Total 480 / 480 240 / 240
Balance 480 / 480 240 / 240
Review of Systems
-
History Source: Patient
Constitutional: Reports No Symptoms
Respiratory: Reports No Symptoms
Cardiac: Reports No Symptoms
Abdomen/GI: Reports Other (Describes the abdominal discomfort)
Neuro: Reports No Symptoms
Physical Exam
-
General: No Apparent Distress and Comfortable
HEENT: Normocephalic
Respiratory: Clear to Auscultation
Cardiac: Regular Rhythm and S1/S2
GI: Soft, Nondistended, Normal Bowel Sounds and Tender (Mid epigastric region)
Musculoskeletal: No Clubbing, No Cyanosis and No Edema
Skin: Warm and Dry
Neuro: Awake, Alert, Oriented and AO x 3
Psych: Calm
Data Reviewed
-
Labs: Labs Reviewed by me and Discussed with Physician
--- NOTE | 2025-02-14 13:51 | CM ---
Chart reviewed. Patient will d/c home today
Met w/ patient bedside, aware and agreeable to d/c. Daughter will transport
IMM verbally reviewed, copy provided, copy on chart
Patient did not identify any needs at this time
Plan: Home, no needs
--- NOTE | 2025-02-14 15:08 | W.DCSUMMARY ---
Discharge Summary
Discharge Data
Date of Admission: 02/12/25
Date of Discharge: 02/14/25
-
Pending Results: Yes
Additional Pending Results:
EGD pathology specimens which patient has to retrieve in 2 weeks by calling the information provided by GI department
Hospital Course
Discharging Physician : Dr. Jose Luna and Dr. Stephen Norris
Disposition : Home
Primary care physician : Dr. Vane Tate
Principal Discharge diagnosis : Acute on chronic blood loss anemia secondary to upper GI bleed, hyperkalemia, prerenal LEYDI
Chronic Discharge diagnosis : Hypertension, hypothyroidism, depression/anxiety, insomnia
Hospital Course : 79-year-old female with past medical history of hypothyroidism, hypertension, depression presented to [facility] due to abnormal labs per PCPs recommendation. Patient had a hemoglobin of 7.7, potassium 6.0, creatinine 1.9,
bun 73 and ongoing nausea and abdominal discomfort concerning for upper GI bleed.
Problem #1---> acute on chronic blood loss anemia secondary to upper GI bleed:
- Presented to the ED with ongoing abdominal discomfort with hemoglobin of 7.7, BUN 73, potassium 6.0. On second day hemoglobin dropped to 6.7 overnight however on recheck was 7.2 with no clinical symptoms of acute bleeding did not require
transfusion. On discharge her hemoglobin was 8.2 and she was asymptomatic. CT of the abdomen showed possible duodenitis and gastritis. GI was consulted. Started patient on IV iron and PPI twice daily. Performed an EGD. Showed normal esophagus,
small hiatal hernia, mild Schatzki ring, discolored mucosa on esophagus which is biopsy, gastric erosion with no stigmata of recent bleeding which was biopsied, nonbleeding duodenal ulcer Sourav class III and normal second portion of duodenum.
They recommended to resume regular diet, continue Protonix oral 40 mg twice daily for 8 weeks outpatient, get pathology result back in 2 weeks, repeat endoscopy in 8 weeks. I also prescribed patient ferrous sulfate 325 mg to be taken once daily.
Patient has a GI outpatient appointment scheduled for March 17.
Problem #2---> hyperkalemia (resolved):
- Patient presented to the ED with a potassium level of 6.0. No clinical symptoms such as arrhythmias shortness of breath, chest pain, tachycardia, palpitations. Given Lokelma 1 dose. Patient was then placed on telemetry. On discharge potassium
is 4.1 and normalized.
Problem #3---> prerenal LEYDI:
- Normal saline fluid was administered and today on discharge creatinine is 1.1 and normalized. Creatinine on admission was 1.9. Her hypertensive medication such as amlodipine 5 mg twice daily was started once her creatinine function was
normalized.
Problem #4---> hypertension:
- Continue patient on amlodipine 5 mg twice daily.
Problem #6---> hypothyroidism:
- Continue levothyroxine home dose
Problem #7---> depression/anxiety:
- Escitalopram was increased from 10 mg to 20 mg. Continue 20 mg dose of escitalopram at home take once daily.
Problem #8---> insomnia:
- Continue home dose of trazodone
Important imaging findings :
Abdominal pelvic CT 02/11/25:
-IMPRESSION: Linear densities within both lower lungs, likely atelectasis, slightly increased from prior CT. Changes of emphysema within the lower lungs.
Coronary artery calcifications are present. Please correlate with symptoms of and risk factors for coronary artery disease, with further workup as clinically appropriate.
The folds of the stomach appears thickened, especially in the upper stomach. There also appear to be thickening of the wall the duodenum from the first through third portions. Findings would be suggestive of gastritis and duodenitis. There is no
evidence for perforation or free intraperitoneal air.
Cholelithiasis. No CT findings to suggest acute cholecystitis. No evidence for biliary ductal dilation.
Moderate to severe vascular calcification with no aortic aneurysm.
Bony degenerative changes as described.
Procedure findings :
EGD on 02/13/25:
- The examined esophagus was normal.
- A small hiatal hernia was present.
- A mild Schatzki ring was found at the gastroesophageal junction.
- Localized moderate mucosal changes characterized by discoloration
were found at the gastroesophageal junction. Biopsies were taken
with a cold forceps for histology.
- A single localized erosion with no stigmata of recent bleeding was
found in the cardia. This area was edematous, atypical appearing and
somewhat extravasated. Biopsies were taken with a cold forceps for
histology extensively.
- The exam of the stomach was otherwise normal. Random biopsies of
normal part of stomach done for HP.
- One non-bleeding cratered duodenal ulcer with a clean ulcer base
(Sourav Class III) was found in the duodenal bulb. The lesion was 7
mm in largest dimension.
- The second portion of the duodenum was normal.
Discharge Plan
-
Patient Disposition: Home (Routine Discharge)
Discharge Diagnosis/Procedures: Acute blood loss on chronic anemia likely secondary to upper GI bleed, duodenal ulcer, gastritis, hyperkalemia, Pre renal LEYDI, Hypertension, Hypothyroidism, depression/anxiety, insomnia
Condition: Fair
Diet: Regular
Activity: As tolerated
Driving Restrictions: As prior to admission
Blood Work: CBC with PCP in 1 week
CMP with PCP in 1 week
Referrals:
Vane Tate MD [Family Provider, Internal Medicine] - in less than 1 week
Mike Mathew MD [Active, Gastroenterology] - in six weeks
Additional Discharge Medication Instructions: Take Ferrous sulfate 325 once a day
Take amlodipine twice a day now
Escitalopram was increased from 10 mg to 20 mg, to be taken once daily.
Take pantoprazole 40 mg BID ( meaning twice a day)
Prescriptions:
New
ferrous sulfate 325 mg (65 mg iron) tablet
325 mg PO DAILY Qty: 30 0RF
trazodone 50 mg Tablet
50 mg PO HS Qty: 30 0RF
amlodipine 5 mg Tablet
5 mg PO BID Qty: 30 0RF
pantoprazole 40 mg Tablet,Delayed Release (Dr/Ec)
40 mg PO BID Qty: 60 0RF
escitalopram oxalate 20 mg Tablet
20 mg PO DAILY Qty: 30 0RF
Continued
cyanocobalamin (vitamin B-12) [Vitamin B-12] 500 mcg Tablet
500 mcg PO DAILY
levothyroxine 112 mcg Tablet
112 mcg PO DAILY
fenofibrate 120 mg Tablet
120 mg PO DAILY
Discontinued
amlodipine 5 mg Tablet
5 mg PO DAILY
pantoprazole [Protonix] 40 mg Tablet,Delayed Release (Dr/Ec)
40 mg PO DAILY
irbesartan 300 mg Tablet
300 mg PO DAILY
escitalopram oxalate 10 mg Tablet
10 mg PO DAILY
Discharge Orders:
Discharge Patient (As Directed); Ordered 02/14/25
Ordered By: Jose Luna
Discharge Date and Time
Discharge Date/Time: 02/14/25 14:15
Print Language: UKRAINIAN
--- NOTE | 2025-02-14 15:56 | PN.CDI ---
CDI
- -
CDI:
Physician Documentation Request
Admit Date: 02/12/25 01:23
Dear Doctor Myrna,
02/13 notes 'Pt reports lost ~ 50 lbs over past year....With 13 lb (10%) weight loss in three weeks significant....With > 5% weight loss in 1 month and <75 % estimated needs > 1 week, pt meets AND/ASPEN criteria for moderate protein calorie
malnutrition of acute illness'
Based on the above information and your assessment, which of the following most accurately represents the patient's nutritional status?
Moderate Malnutrition
Other (please specify)
Sebring Criteria ([facility] Hospitalist 2017)
2 or more criteria must be present for either
non severe or severe malnutrition
Note that the criteria differs related to the
presence of an acute or chronic illness
Acute Illness Chronic Illness
Energy Intake Non Severe: <75% for >7 days Non Severe: <75% for >1 month
Severe: <50% for >5 days Severe: <75% for >1 month
Weight Loss Non Severe: 1-2% over 1 week Non Severe: 5% over 1 month
5% over 1 month 7.5% over 3 months
7.5% over 3 months 10% over 6 months
1 year N/A 20% over 1 year
Severe: >2% over 1 week Severe: >5% over 1 month
>5% over 1 month >7.5% over 3 months
>7.5% over 3 months >10% over 6 months
1 year N/A >20% over 1 year
Body Fat Non Severe: Mild Decrease Non Severe: Mild Loss
Severe: Moderate Decrease Severe: Severe Loss
Muscle Mass Non Severe: Mild Decrease Non Severe: Mild Loss
Severe: Moderate Decrease Severe: Severe Loss
Fluid Accumulation Non Severe: Mild Accumulation Non Severe: Mild Accumulation
Severe: Moderate to severe Severe: Moderate to severe
accumulation accumulation
Reduced [employer] Strength Non Severe: N/A Non Severe: N/A
Severe: Measurably reduced Severe: Measurably reduced
Use of terms such as suspected, likely, concern for, or probable (associated with a specific diagnosis that is being evaluated, monitored, or treated as if it exists) are acceptable and can be coded in the inpatient setting, when documented at the
time of discharge.
Thank you,
Brenda Cleaning RN, BSN
CDI Specialist
tiger text
Please use your independent medical judgment in providing your response.
== END 2025-02-14 14:15 | disposition home or self-care (01) | DRG 378 ==
LOC: 4 EAST ACU 01:23
PROVIDERS: Emergency Medicine; Nurse Practitioner Family; ADMITTING PHYSICIAN Internal Medicine; ATTENDING PHYSICIAN Internal Medicine; CONSULT PHYSICIAN Internal Medicine Gastroenterology; EMERGENCY PHYSICIAN Emergency Medicine; FAMILY PHYSICIAN Internal Medicine
PROC: 0DB68ZX Excision of Stomach, Via Natural or Artificial Opening Endoscopic, Diagnostic (ICD-10-PCS; 2025-02-13)
PROC: 0DB58ZX Excision of Esophagus, Via Natural or Artificial Opening Endoscopic, Diagnostic (ICD-10-PCS; 2025-02-13)
DX: K26.4 Chronic or unspecified duodenal ulcer with hemorrhage (principal); D62 Acute posthemorrhagic anemia; N17.9 Acute kidney failure, unspecified; J98.11 Atelectasis; E44.0 Moderate protein-calorie malnutrition; Z68.1 Body mass index [BMI] 19.9 or less, adult; K25.4 Chronic or unspecified gastric ulcer with hemorrhage; K44.9 Diaphragmatic hernia without obstruction or gangrene; K22.2 Esophageal obstruction; E03.9 Hypothyroidism, unspecified; F32.A Depression, unspecified; F41.9 Anxiety disorder, unspecified; G47.00 Insomnia, unspecified; E87.5 Hyperkalemia; I10 Essential (primary) hypertension; J43.9 Emphysema, unspecified; I25.10 Atherosclerotic heart disease of native coronary artery without angina pectoris; K80.20 Calculus of gallbladder without cholecystitis without obstruction; Z66 Do not resuscitate; E78.00 Pure hypercholesterolemia, unspecified; I44.0 Atrioventricular block, first degree; Z79.890 Hormone replacement therapy; Z79.899 Other long term (current) drug therapy; Z87.891 Personal history of nicotine dependence; Z90.710 Acquired absence of both cervix and uterus
CPT/HCPCS: 74176; 80048; 80053; 82607; 82728; 82746; 83540; 83550; 83690; 84484; 85014; 85018; 85025; 85027; 85610; 86850; 86870; 86900; 86901; 86902; 86905; 86920; 86922; 88305; 88341; 88342; 93005; 96361; 96374; 99285; 99406; J2916

== ENCOUNTER → 2025-02-21 07:43 | Outpatient (REF) | payer OTHER, SELFPAY ==
[2025-02-21 10:27] LABS: Hematocrit 27.0 % (37.0-47.0); Hemoglobin 8.5 g/dL (12.0-16.0); Mean Corp Hgb Conc. 31.5 g/dL (33.0-37.0); Mean Corpuscular Volume 101.5 fL (81.0-99.0); Nucleated Red Blood Cells % 0 %; Platelet Count 299 10^3/uL (130-400); Red Cell Dist. Width 14.7 % (11.5-14.5)
[2025-02-21 10:53] LABS: Blood Urea Nitrogen 43 mg/dl (7-17); Calcium 8.8 mg/dl (8.4-10.2); Carbon Dioxide 29 mmol/L (22-30); Chloride 106 mmol/L (98-107); Glucose 85 mg/dl (70-99); Potassium 4.8 mmol/L (3.5-5.1); Sodium 139 mmol/L (135-145); eGFR 27.96
== END ==
LOC: HWLAB 07:43
PROVIDERS: ATTENDING PHYSICIAN Internal Medicine
DX: Z09 Encounter for follow-up examination after completed treatment for conditions other than malignant neoplasm (principal); N28.9 Disorder of kidney and ureter, unspecified; D64.9 Anemia, unspecified
CPT/HCPCS: 36415; 80048; 85025

== ENCOUNTER → 2025-03-08 09:35 | Outpatient (REF) | payer OTHER, SELFPAY ==
[2025-03-09 23:06] LABS: H. pylori Antigen, Fecal Positive (Negative)
== END ==
LOC: REG 09:35
PROVIDERS: ATTENDING PHYSICIAN Internal Medicine Gastroenterology; FAMILY PHYSICIAN Internal Medicine
DX: C88.40 Extranodal marginal zone B-cell lymphoma of mucosa-associated lymphoid tissue [MALT-lymphoma] not having achieved remission (principal)
CPT/HCPCS: 36415; 83013; 87338

== ENCOUNTER 2025-03-11 06:31 | Day surgery (SDC) | payer OTHER, SELFPAY | END 2025-03-11 13:29 | disposition home or self-care (01) | LOC: GI 06:31 | PROVIDERS: ATTENDING PHYSICIAN Internal Medicine Gastroenterology | DX: K29.50 Unspecified chronic gastritis without bleeding (principal); C88.40 Extranodal marginal zone B-cell lymphoma of mucosa-associated lymphoid tissue [MALT-lymphoma] not having achieved remission; K26.9 Duodenal ulcer, unspecified as acute or chronic, without hemorrhage or perforation; K44.9 Diaphragmatic hernia without obstruction or gangrene | CPT/HCPCS: 43239; 88305; 88341; 88342; 88365 ==

== ENCOUNTER → 2025-04-12 07:37 | Outpatient (REF) | payer OTHER, SELFPAY | LOC: REG 07:37 | PROVIDERS: ATTENDING PHYSICIAN Internal Medicine Gastroenterology | DX: R19.7 Diarrhea, unspecified (principal); C88.40 Extranodal marginal zone B-cell lymphoma of mucosa-associated lymphoid tissue [MALT-lymphoma] not having achieved remission | CPT/HCPCS: 36415; 83013; 87045; 87046; 87324; 87328; 87329; 87427; 87449 ==

== ENCOUNTER → 2025-05-24 09:14 | Outpatient (REF) | payer OTHER, SELFPAY ==
[2025-05-24 12:20] LABS: Hematocrit 33.8 % (37.0-47.0); Hemoglobin 10.5 g/dL (12.0-16.0); Mean Corp Hgb Conc. 31.1 g/dL (33.0-37.0); Mean Corpuscular Volume 101.5 fL (81.0-99.0); Nucleated Red Blood Cells % 0 %; Platelet Count 308 10^3/uL (130-400); Red Cell Dist. Width 15.1 % (11.5-14.5)
[2025-05-24 12:36] LABS: ALT (SGPT) 10 U/L (0-35); AST (SGOT) 24 U/L (14-36); Albumin 4.5 g/dl (3.5-5.0); Alkaline Phosphatase 63 U/L (38-126); Blood Urea Nitrogen 30 mg/dl (7-17); Iron 88 ug/dl (37-170); Total Protein 7.4 g/dl (6.3-8.2)
[2025-05-24 12:47] LABS: Total Iron Binding Capacity 433 ug/dl (265-497)
[2025-05-24 13:08] LABS: Ferritin 154.0 ng/ml (11.1-264.0)
[2025-05-24 13:39] LABS: Folate 7.4 ng/ml (2.76-20); Vitamin B12 947 pg/ml (239-931)
[2025-05-24 15:07] LABS: Reticulocyte Count 2.0 % (0.4-2.8)
[2025-05-25 22:48] LABS: Intrinsic Factor Blocking Ab Negative (Negative)
[2025-05-27 00:25] LABS: Albumin 4.16 g/dL (3.75-5.01); Free Kappa Light Chains,Quant 116.67 mg/L (3.30-19.40); Free Lambda Light Chains,Quant 56.77 mg/L (5.71-26.30); Immunofixation Electrophoresis IFE Done; Kappa/Lambda Fr Light Ratio 2.06 (0.26-1.65); Total Protein-Electrophoresis 7.2 g/dL (6.3-8.2)
[2025-05-27 00:27] LABS: Gastric Parietal Cell Ab, IgG 8.4 Units (0.0-24.9)
== END ==
LOC: HWLAB 09:14
PROVIDERS: ATTENDING PHYSICIAN Internal Medicine Hematology & Oncology; FAMILY PHYSICIAN Internal Medicine
DX: C88.41 Extranodal marginal zone B-cell lymphoma of mucosa-associated lymphoid tissue [MALT-lymphoma], in remission (principal); D64.9 Anemia, unspecified; D50.8 Other iron deficiency anemias; D51.3 Other dietary vitamin B12 deficiency anemia; Z87.891 Personal history of nicotine dependence; R91.8 Other nonspecific abnormal finding of lung field
CPT/HCPCS: 36415; 80076; 82565; 82607; 82668; 82728; 82746; 82784; 83010; 83516; 83521; 83540; 83550; 84155; 84165; 84439; 84443; 84520; 85025; 85045; 85652; 86334; 86340; 86880